=== PATIENT | female | born 1985 | race Caucasian/White ===

== ENCOUNTER 2023-01-07 19:09 | Inpatient (IN) | payer BC ==
[2023-01-07] MEDS ORDERED: EPINEPHrine 1 MG/1 ML Amp IM ONE ×4 (19:15→22:45)
[2023-01-07] MEDS ORDERED: Sodium Chloride 0.9% 10 ML Syringe FLUSH PRN ×2 (19:15→23:15)
[2023-01-07] MEDS ORDERED: methylPREDNISolone Sodium Succinate 125 MG/2 ML SDV IVPUSH ONE (19:15)
[2023-01-07] MEDS ORDERED: Sodium Chloride 0.9% 2.5 ML Syringe FLUSH PRN ×2 (19:15→23:15)
[2023-01-07] MEDS ORDERED: Sodium Chloride 0.9% 1,000 ML IV ONE (19:15)
[2023-01-07] MEDS ORDERED: diphenhydrAMINE 50 MG/ML SDV IVPUSH ONE (19:15)
[2023-01-07] MEDS ORDERED: Ondansetron 4 MG/2 ML SDV IVPUSH ONE (19:21)
[2023-01-07 19:50] LABS: BASOPHILS PERCENT AUTO 0.4 % (0.0-1.5); EOSINOPHILS ABSOLUTE AUTO 0.1 K/uL (0.0-0.7); EOSINOPHILS PERCENT AUTO 1.2 % (0.0-7.0); HEMATOCRIT 37.8 % (36.0-46.0); HEMOGLOBIN 12.6 g/dL (12.0-16.0); LYMPHOCYTES ABSOLUTE AUTO 5.1 K/uL (0.6-2.4); LYMPHOCYTES PERCENT AUTO 60.6 % (16.0-40.0); MEAN CORPUSCULAR HEMOGLOBIN 30.5 pg (27.0-32.0); MEAN CORPUSCULAR HGB CONC 33.3 g/dL (31.0-37.0); MEAN CORPUSCULAR VOLUME 91.5 fL (80.0-98.0); MONOCYTES ABSOLUTE AUTO 0.5 K/uL (0.0-0.8); NEUTROPHILS ABSOLUTE AUTO 2.7 K/uL (1.4-5.7); NEUTROPHILS PERCENT AUTO 31.8 % (48.0-80.0); NRBC ABSOLUTE 0 K/uL; PLATELET COUNT,PLT 269 K/uL (150-400); RED BLOOD CELL COUNT 4.13 M/uL (4.30-5.90); WHITE BLOOD CELL COUNT,WBC 8.43 K/uL (4.0-11.0)
[2023-01-07 19:52] LABS: BASE EXCESS VENOUS -1.1 (-2.0-3.0); PH,VENOUS 7.38 (7.31-7.41)
[2023-01-07 20:16] LABS: CREATINE KINASE,CK 73 U/L (26-308)
[2023-01-07 20:19] LABS: ALBUMIN 3.4 g/dL (3.4-5.0); BILIRUBIN TOTAL 0.2 mg/dL (0.2-1.0); CALCIUM 7.7 mg/dL (8.5-10.1); CREATININE 0.6 mg/dL (0.6-1.0); EST CRCL DRUG DOSING (CG) 109.78 mL/min; ETHANOL BLOOD MEDICAL < 3.0 mg/dL; POTASSIUM,K 2.7 mmol/L (3.5-5.1); PROTEIN TOTAL,TP 6.8 g/dL (6.4-8.2)
[2023-01-07 20:20] LABS: LACTIC ACID 1.9 mmol/L (0.4-2.0)
[2023-01-07] MEDS ORDERED: Potassium Chloride 10% 20 MEQ/15 ML Soln 15 ML UD Cup PO ONE (21:10)
[2023-01-07] MEDS ORDERED: Sodium Chloride 0.9% 20 ML SDV IV PRN (23:15)
[2023-01-07] MEDS ORDERED: Pantoprazole 40 MG in Sodium Chloride 0.9% 10 ML IVPUSH SCH (23:15)
[2023-01-07] MEDS ORDERED: Ondansetron 4 MG/2 ML SDV IVPUSH PRN (23:15)
[2023-01-07] MEDS ORDERED: Acetaminophen 325 MG Tab PO PRN (23:15)
[2023-01-07] MEDS ORDERED: Albuterol/Ipratropium 3.0-0.5 MG/3 ML Neb Soln NEB PRN (23:15)
[2023-01-07] MEDS ORDERED: Enoxaparin 40 MG/0.4 ML Syringe SUBCUT SCH (23:15)
[2023-01-07] MEDS ORDERED: Potassium Chloride 20 MEQ Tab.ER PO ONE (23:20)
[2023-01-07] MEDS ORDERED: NS with KCl 40mEq 1,000 ML IV ONE (23:20)
[2023-01-07] MEDS ORDERED: diphenhydrAMINE 50 MG/ML SDV IVPUSH PRN (23:30)
[2023-01-07] MEDS ORDERED: EPINEPHrine 1 MG in Dextrose 5% in Water 99 ML IV SCH ×2 (23:30)
[2023-01-07] MEDS ORDERED: Magnesium Sulfate/Water 2 GM in Premix Bag 1 BAG IV ONE (23:48)
[2023-01-08] MEDS ORDERED: EPINEPHrine 1 MG/1 ML Amp IM PRN (00:31)
[2023-01-08] MEDS: Famotidine 20 MG Tab PO SCH ×2 (00:42→08:04)
[2023-01-08] MEDS ORDERED: Magnesium Sulfate/Water 2 GM in Premix Bag 1 BAG IV ONE (00:45)
[2023-01-08 01:23] VITALS: PULSE 77
[2023-01-08 06:07] LABS: HEMATOCRIT 37.1 % (36.0-46.0); LYMPHOCYTES ABSOLUTE AUTO 0.6 K/uL (0.6-2.4); LYMPHOCYTES PERCENT AUTO 15.5 % (16.0-40.0); MEAN CORPUSCULAR HEMOGLOBIN 29.9 pg (27.0-32.0); MEAN CORPUSCULAR HGB CONC 32.3 g/dL (31.0-37.0); MEAN CORPUSCULAR VOLUME 92.5 fL (80.0-98.0); MONOCYTES ABSOLUTE AUTO 0.1 K/uL (0.0-0.8); MONOCYTES PERCENT AUTO 1.6 % (0.0-15.0); NEUTROPHILS ABSOLUTE AUTO 3.2 K/uL (1.4-5.7); NEUTROPHILS PERCENT AUTO 82.9 % (48.0-80.0); NRBC ABSOLUTE 0 K/uL; PLATELET COUNT,PLT 252 K/uL (150-400); RED BLOOD CELL COUNT 4.01 M/uL (4.30-5.90); WHITE BLOOD CELL COUNT,WBC 3.81 K/uL (4.0-11.0)
[2023-01-08 06:32] LABS: ALBUMIN 3.4 g/dL (3.4-5.0); BILIRUBIN TOTAL 0.2 mg/dL (0.2-1.0); CALCIUM 7.2 mg/dL (8.5-10.1); CARBON DIOXIDE,CO2 21.1 mmol/L (21.0-32.0); CREATININE 0.6 mg/dL (0.6-1.0); EST CRCL DRUG DOSING (CG) 109.78 mL/min; MAGNESIUM 2.3 mg/dL (1.8-2.4); POTASSIUM,K 5.8 mmol/L (3.5-5.1); PROTEIN TOTAL,TP 6.9 g/dL (6.4-8.2)
[2023-01-08] MEDS ORDERED: Citalopram 20 MG Tab PO SCH (09:00)
[2023-01-08 11:18] VITALS: BP 93/59
== END 2023-01-08 11:15 | disposition home or self-care (01) | DRG 816 ==
LOC: MW.ED 19:09 → MW.ICU 23:04
PROVIDERS: ADMIT Family Medicine; ATTEND Family Medicine
DX: T63.441A Toxic effect of venom of bees, accidental (unintentional), initial encounter (principal); T78.2XXA Anaphylactic shock, unspecified, initial encounter; E87.6 Hypokalemia; Z68.22 Body mass index [BMI] 22.0-22.9, adult; Z79.899 Other long term (current) drug therapy; Z91.030 Bee allergy status
CPT/HCPCS: 36415; 70450; 70450-26; 80053; 80307; 82550; 82803; 83605; 83735; 84484; 84703; 85025; 85379; 85610; 93005; 93010; 96361; 96372; 96374; 96375; 99291; A9270-GY; J0171; J1200; J1650; J2405; J2930; J3475; J3480; J3490; J7030

== ENCOUNTER 2024-02-08 14:19 | Emergency (ER) | payer BC ==
[2024-02-08] MEDS ORDERED: EPINEPHrine 1 MG/1 ML Amp ONE (14:36)
[2024-02-08] MEDS: Famotidine 20 MG/2 ML SDV IVPUSH ONE (14:41)
[2024-02-08] MEDS: EPINEPHrine 1 MG/1 ML Amp IM ONE (14:41)
[2024-02-08] MEDS: Sodium Chloride 0.9% 1,000 ML IV ONE ×2 (14:41→18:03)
[2024-02-08] MEDS: diphenhydrAMINE 50 MG/ML SDV IVPUSH ONE (14:41)
[2024-02-08] MEDS: methylPREDNISolone Sodium Succinate 125 MG/2 ML SDV IVPUSH ONE (14:41)
[2024-02-08 19:53] VITALS: BP 103/72; PULSE 83
== END 2024-02-08 19:42 | disposition home or self-care (01) ==
LOC: MW.ED 14:19
DX: T63.441A Toxic effect of venom of bees, accidental (unintentional), initial encounter (principal); Z79.899 Other long term (current) drug therapy; Z91.030 Bee allergy status; Z75.8 Other problems related to medical facilities and other health care
CPT/HCPCS: 96361; 96372; 96374; 96375; 99283; J0171; J1200; J2919; J3490; J7030

== ENCOUNTER 2024-02-10 12:48 | Emergency (ER) | payer BC ==
[2024-02-10 12:57] VITALS: PULSE 75
[2024-02-10] MEDS: diphenhydrAMINE 50 MG Cap PO ONE (13:03)
[2024-02-10] MEDS: Sodium Chloride 0.9% 1,000 ML IV SCH (14:17)
[2024-02-10] MEDS: Famotidine 20 MG/2 ML SDV IVPUSH ONE (14:18)
[2024-02-10 14:19] VITALS: BP 92/64
== END 2024-02-10 15:26 | disposition home or self-care (01) ==
LOC: MW.ED 12:48
DX: J39.2 Other diseases of pharynx (principal); Z79.899 Other long term (current) drug therapy; Z91.030 Bee allergy status; Z88.0 Allergy status to penicillin
CPT/HCPCS: 71045; 96361; 96374; 99283; J3490; J7030